=== PATIENT | female | born 2000 | race Two or more races ===

== ENCOUNTER 2024-03-16 03:00 | Observation (INO) | payer MEDICAID, SELFPAY ==
[2024-03-16 01:29] VITALS: BMI 24.7
[2024-03-16 02:05] VITALS: BP 117/80; PULSE 79; RESP 16; TEMP 36.7; O2SAT 100
--- NOTE | 2024-03-16 02:10 | PD.EDRME ---
Rapid Medical Screening Exam RME Arrival date/time: 03/16/24 01:29 23-year-old female approximately 31 weeks presents emergency department complaining of dizziness and nausea that started today. Chief Complaint: Dizziness Time Seen by Provider: 03/16/24 01:43 Vital signs: Vital Signs Temperature 98.0 F 03/16/24 02:05 Pulse Rate 79 03/16/24 02:05 Respiratory Rate 16 03/16/24 02:05 Blood Pressure 117/80 03/16/24 02:05 Pulse Oximetry (%) 100 03/16/24 02:05 Oxygen Delivery Method Room Air 03/16/24 02:05 Vital signs reviewed by provider: Yes
[2024-03-16] MEDS: ONDANSETRON ODT 4 MG TABRAP PO (02:13)
[2024-03-16 02:23] LABS: Basophils % (Auto) 0 % (0-2.5); Eosinophils # (Auto) 0.2 Thou/mm3 (0.0-0.5); Eosinophils % (Auto) 2 % (0-10); Hematocrit 35.3 % (36.0-46.0); Hemoglobin 12.1 g/dL (12.0-16.0); Immature Granulocytes % (Auto) 0 % (0-0); Immature Granulocytes Auto 0.03 Thou/mm3 (0.00-0.00); Lymphocytes # (Auto) 2.1 Thou/mm3 (1.0-4.8); Lymphocytes % (Auto) 21 % (10-50); Mean Corpuscular HGB Conc 34.3 g/dl (31.0-37.0); Mean Corpuscular Hemoglobin 30.4 pg (25.0-35.0); Mean Corpuscular Volume 89 fL (80-100); Monocytes # (Auto) 0.7 Thou/mm3 (0.0-0.8); Monocytes % (Auto) 7 % (0-12); Neutrophils % (Auto) 69 % (37-80); Nucleated Red Blood Cell % 0 /100 WBC (0); Platelet Count 231 Thou/mm3 (140-440); RDW Standard Deviation 41.4 fL (36.4-46.3); Red Blood Count 3.98 Miln/mm3 (4.00-5.20); White Blood Count 10.1 Thou/mm3 (3.6-11.0)
[2024-03-16 02:43] LABS: Collection Type, Urine Clean Catch
[2024-03-16 02:43] LABS: Alanine Aminotransferase 7 U/L (10-49); Albumin/Globulin Ratio 1.4 (1.2-2.2); Alkaline Phosphatase 86 U/L (46-116); Anion Gap 7 (7-16); Aspartate Amino Transferase 14 U/L (0-34); BUN/Creatinine Ratio 15 Ratio (12-20); Bilirubin,Total 0.7 mg/dL (0.3-1.2); Blood Urea Nitrogen 9 mg/dL (9-23); Calcium 9.8 mg/dL (8.3-10.6); Calcium (Corrected) 9.8 mg/dL (8.5-10.1); Carbon Dioxide 24.8 mMol/L (20.0-31.0); Chloride 108 mMol/L (98-107); Creatinine (Component) 0.6 mg/dL (0.6-1.3); Estimated Creatinine Clearance 123.4 mL/min (>60); Globulin 2.8 gm/dL (2.3-3.5); Glucose 87 mg/dL (74-106); Osmolality,Calculated 277 (275-295); Potassium 3.5 mMol/L (3.4-5.1); Sodium 140 mMol/L (136-145); Total Protein 6.8 gm/dL (5.7-8.2); eGFR > 60 See Note
[2024-03-16 02:46] LABS: Bilirubin,Urine Negative (Negative); Blood,Urine Negative (Negative); Clarity,Urine Turbid (Clear/Hazy); Color,Urine Lt-Yellow (Lt Yel-Yel); Culture Indicated,Urine Not Indicated; Glucose, Urine Negative (Negative); Ketones,Urine Negative (Negative); Leukocyte Esterase,Urine Positive (Negative); Nitrite,Urine Negative (Negative); Protein,Urine Negative (Neg - Trace); RBC,Urine 2 /hpf (0-3); Specific Gravity,Urine 1.016 (1.001-1.035); Squamous Epithelial Cell,Urine 16 /hpf (0-5); Urobilinogen,Urine Negative mg/dL (0.0-1.0); WBC,Urine 8 /hpf (0-5)
[2024-03-16 02:51] VITALS: BP 129/74; BP 137/88; BP 137/89; PULSE 67; PULSE 75; PULSE 76
--- NOTE | 2024-03-16 02:52 | EDNOTE_ITS ---
ED Dizzyness RME/HPI General Chief Complaint: Dizziness Stated Complaint: DIZZINESS/NAUSEA X 1DAY Time Seen by Provider: 03/16/24 01:43 Arrival date/time: 03/16/24 01:29 RME / HPI RME / HPI Narrative: 03/16/24 01:29 23-year-old female approximately 31 weeks presents emergency department complaining of dizziness and nausea that started today. ----- This section includes all my notes and documentations, including HPI, PE, and ED course. Zi Mcclelland MD HPI: 23yo female who is 31 weeks gestation presents to the ED for a chief complaint of dizziness x 1 day. Patient states she's been feeling lightheaded that worsens when she stands up. She reports associated tingling throughout her body. She denies any decreased appetite, vomiting, diarrhea, fever, chills, cough, chest pain, shortness of breath or any other associated symptoms. Baby has been moving well. No contractions. No vaginal bleeding. No other complaints reported. ROS: All negative except as documented in HPI. Physical Exam: General: Alert and oriented. No acute distress when remaining still. Eyes: Conjunctivae and lids clear. PERRL. EOMI. ENT: No nasal congestion. Pharynx normal. TM normal bilaterally. Neck: Supple. Heart: RRR. Lungs: No respiratory distress. Good air movement. No rhonchi, wheezing, rales. Abdomen: Soft, gravid with consistent FH, and nontender. Good FHT. Legs: No clubbing, cyanosis, edema. Skin: Warm and dry. Neuro: Alert and oriented X 3. Cranial nerves II to XII grossly normal. No peripheral motor deficits. I reviewed all diagnostic test results. Orthostatic vitals negative. Blood tests and urine tests unremarkable. At this point, diagnoses include Lightheadedness, related fatigue in third trimester Patient remained stable. Based on my best medical judgment, made decision no further evaluation or treatment indicated at this time. Will get more evaluation in our OB department. Discharge instructions from Dr. Mcclelland: 1. After evaluation here in the emergency department, exact cause of your lightheadedness (worse with sitting and standing) was not determined. But there was no orthostatic hypotension (low BP and fast heart rate when standing compared to lying down). And blood and urine tests were normal. 2. You will get further evaluation in our OB department. Zi Mcclelland MD Related Data Home Medications ?Medication ?Instructions ?Recorded ?Confirmed prenat.vits,yesenia,[id number] 1 tab PO 03/16/24 Allergies Allergy/AdvReac Type Severity Reaction Status Date / Time No Known Allergies Allergy Verified 03/16/24 03:12 Review of Systems Review of Systems Systems Reviewed: All systems reviewed, normal except as documented Past Medical History Past Medical History NEUROLOGIC: Negative Neurological Disorders or Seizures CARDIAC: Negative Cardiac Disorders, Congestive Heart Failure, Edema, Cellulitis or Varicose Veins RESPIRATORY: Negative Chronic Obstructive Pulmonary Disease (COPD), Asthma, Tuberculosis, Pulmonary Embolism or Sleep Apnea GASTROINTESTINAL: Positive Gastrointestinal Disorders and Gall Bladder Disease (FOR THIS PROC); Negative Hepatitis GENITOURINARY: Positive Genitourinary Disorders and Kidney Stones (NO SURG); Negative Renal Disease REPRODUCTIVE: Positive Previous Pregnancies (X2) MUSCULOSKELETAL: Positive Musculoskeletal Disorders and Scoliosis (MILD) ENDOCRINE: Negative Endocrine Disorders, Diabetes Mellitus Type 1 or Diabetes Mellitus Type 2 HEMATOLOGIC: Negative Blood Disorders or Sickle Cell Disease OTHER HISTORY: Negative Hospitalization, Autoimmune Disease, Shingles, Falls, Blood Transfusions, Blood Transfusion Reaction, Anesthesia Reactions, Chemotherapy, Radiation Therapy, MRSA, VRSA, Vancomycin-Resistant Enterococci, Human Immunodeficiency Virus (HIV), Chicken Pox, Measles, Mumps, Rubella (K[place] Measles), Pertussis, Clostridium Difficile or Cancer Family History FAMILY HISTORY: Positive Family Respiratory Disorders (brother (ashtma)) and Family Surgery (MOTHER,FATHER); Negative Family Psychiatric Problems, Family Cardiac Disorders, Family Gastrointestinal Problems, Family Cancer or Family Anesthesia Reaction Surgical History SURGICAL: Negative Pacemaker Social History SMOKING STATUS: Never smoker SUBSTANCE USE: does not use ED Exam Narrative Physical exam: As noted in HPI. Course Quality Measures none Orders Category Date Time Status Place in Observation Status Routine Admission 03/16/24 03:06 Active Continuous Monitoring Routine Care 03/16/24 03:08 Ordered Non-Stress Test Now Care 03/16/24 03:08 Active Orthostatic Vitals X1 Care 03/16/24 02:09 Active Sterile Vaginal Exam PRN Care 03/16/24 03:15 Ordered CBC Stat Lab 03/16/24 02:18 Completed CMP [Comprehensive Metabolic Panel] Stat Lab 03/16/24 02:18 Completed Urinalysis, C/S if Indicated Stat Lab 03/16/24 02:29 Completed Ondansetron Odt [Zofran Odt] Med 03/16/24 02:09 Discontinued 4 mg PO X1 ONE Ondansetron Odt [Zofran Odt] Med 03/16/24 02:10 Discontinued 4 mg PO X1 ONE Vital Signs Vital signs: Vital Signs Temperature 98.0 F 03/16/24 02:05 Pulse Rate 79 03/16/24 02:05 Respiratory Rate 16 03/16/24 02:05 Blood Pressure 117/80 03/16/24 02:05 Pulse Oximetry (%) 100 03/16/24 02:05 Oxygen Delivery Method Room Air 03/16/24 02:05 Dizziness MDM Narrative MDM Narrative:: Scribe Attestation: 03/16/24 - Neha Mijares am scribing for and in the presence of Dr. Mcclelland. Patient data External records reviewed:: [facility] previous records (Per chart review, patient was seen here on 11/08/23 for UTI.) Clinical information provided by:: patient Social determinants that could affect healthcare access:: none Patient has the following chronic illnesses:: none How is presenting disease/condition affected by chronic disease/condition?: no chronic disease Evaluation data The following diagnostics were reviewed and interpreted by me:: lab results Lab and/or radiology exams considered but not ordered:: none Interpretation Summary: Lightheadedness, related fatigue in third trimester Medications / Prescriptions Medications or Prescriptions considered but not ordered:: none Medication administrations:: Medication Administration History Discontinued Medications Ondansetron HCl (Ondansetron Odt 4 Mg Tabrap) 4 mg PO X1 ONE; Protocol Stop: 03/16/24 02:10 Last Admin: 03/16/24 02:13 Dose: Not Given Documented By: VALERY Non-Admin Reason: Discontinued Ondansetron HCl (Ondansetron Odt 4 Mg Tabrap) 4 mg PO X1 ONE; Protocol Stop: 03/16/24 02:11 Last Admin: 03/16/24 02:13 Dose: 4 mg Documented By: VALERY Jonas Consultations Consultation(s) initiated? (list below): No Diagnosis Dizziness Differential Diagnosis: adverse reaction to drug, benign paroxysmal positional vertigo, orthostatic hypotension and other (dehydration, electrolyte abnormality, UTI) Most likely diagnosis given after review of the tests above:: Lightheadedness, related fatigue in third trimester Admission Indicated Admission indicated?: not indicated Explain why admission is indicated or not indicated:: Admission criteria not met Admission Request Was there a request for admission?: No Disposition Plan Disposition Plan: Discharge Discharge Attestation Discharge Attestation: The patient and all family members were given an opportunity to ask questions and understood the discharge instructions. Discharge instructions specifically effects, indications for sooner follow up or return to the emergency department, and the expected course of current diagnosis. Patient condition: Stable Discharge Plan Plan Patient Disposition: HOME (Self Care) Prescriptions/Referrals Prescriptions/Med Rec: No Action Vitamin Tablet 1 tab PO Referrals: Mariluz Julien FNP [Primary Care Provider] - In 1 week Patient/Caregiver Discharge Instructions Print Language: Swedish Activity Restrictions/Additional Instructions: Discharge instructions from Dr. Mcclelland: 1. After evaluation here in the emergency department, exact cause of your lightheadedness (worse with sitting and standing) was not determined. But there was no orthostatic hypotension (low BP and fast heart rate when standing compared to lying down). And blood and urine tests were normal. 2. You will get further evaluation in our OB department. Stand Alone Forms: Alana Award Info., Patient Portal Info Letter
[2024-03-16 03:14] VITALS: TEMP 36.9; BMI 25.6
[2024-03-16 03:20] VITALS: BP 114/77; PULSE 67
[2024-03-16 03:21] VITALS: BP 114/77; PULSE 67; RESP 16; RESP 99; TEMP 36.9
[2024-03-16 03:33] VITALS: TEMP 36.9
== END 2024-03-16 04:25 | disposition home or self-care (01) ==
LOC: S4SX 03:01
PROVIDERS: Admitting Provider Specialist; PCP Registered Nurse Community Health; Visit Provider Specialist
DX: O26.893 Other specified pregnancy related conditions, third trimester (principal); Z3A.31 31 weeks gestation of pregnancy; R42 Dizziness and giddiness; R11.0 Nausea
CPT/HCPCS: 36415; 59025; 59899; 80053; 81001; 85025; Q0162